=== PATIENT | male | born 1995 | race Caucasian/White ===

== ENCOUNTER 2017-02-12 20:03 | Emergency (ER) | payer MEDICAID ==
[~2017-02-12] VITALS: Ht 177.8 cm; Wt 63.4 kg
[2017-02-12 20:03] VITALS: BP 130/83
== END 2017-02-12 21:58 | disposition home or self-care (01) ==
LOC: ED 21:52
DX: S93.491A Sprain of other ligament of right ankle, initial encounter (principal); X50.1XXA Overexertion from prolonged static or awkward postures, initial encounter; Y93.66 Activity, soccer; Y92.89 Other specified places as the place of occurrence of the external cause; Y99.8 Other external cause status
CPT/HCPCS: 99284

== ENCOUNTER 2017-08-22 08:06 | Emergency (ER) | payer MEDICAID, OTHER ==
[~2017-08-22] VITALS: Ht 175.3 cm; Wt 64.0 kg
[2017-08-22 10:48] VITALS: BP 131/91
== END 2017-08-22 10:50 | disposition home or self-care (01) ==
LOC: ED 10:17
DX: S39.012A Strain of muscle, fascia and tendon of lower back, initial encounter (principal); S29.012A Strain of muscle and tendon of back wall of thorax, initial encounter; S16.1XXA Strain of muscle, fascia and tendon at neck level, initial encounter; S80.01XA Contusion of right knee, initial encounter; V49.49XA Driver injured in collision with other motor vehicles in traffic accident, initial encounter; Y93.89 Activity, other specified; Y92.89 Other specified places as the place of occurrence of the external cause; Y99.8 Other external cause status
CPT/HCPCS: 70450; 72072; 72110; 72125; 99284